=== PATIENT | female | born 1975 | race Caucasian/White ===

== ENCOUNTER → 2017-11-10 | Outpatient (CLI) | payer OTHER ==
[~2017-11-10] MED LIST: Amoxicillin PO; Motrin PO; Percocet 5/325,Endoc PO
== END | disposition home or self-care (01) ==
LOC: CDC 10:06
DX: Z01.810 Encounter for preprocedural cardiovascular examination (principal); C50.812 Malignant neoplasm of overlapping sites of left female breast
CPT/HCPCS: 93000

== ENCOUNTER 2017-11-24 06:36 | Day surgery (SDC) | payer OTHER ==
[~2017-11-24] VITALS: Ht 160 cm; Wt 56.2 kg
[~2017-11-24 06:36] MED LIST changes: +ADVIL COLD &1 TABLET PO; +CYANOCOBALAM1000 MCG PO; +GABAPENTIN300 MG PO; +NABUMETONE750 MG PO
[2017-11-24 07:11] VITALS: BP 102/69
[2017-11-24] MEDS ORDERED: HYDROCODON-ACE1 EAC7 PO (14:27)
[2017-11-24 15:43] VITALS: BP 95/60
[2017-11-24 17:00] VITALS: BP 101/61
== END 2017-11-24 17:30 | disposition home or self-care (01) ==
LOC: SDC 06:36 → NUC 06:36 → SDC 08:00 → 2SOUTH 14:38 → EDSTATUS 14:40 → SDC 14:41
DX: C50.812 Malignant neoplasm of overlapping sites of left female breast (principal); C77.3 Secondary and unspecified malignant neoplasm of axilla and upper limb lymph nodes; Z17.0 Estrogen receptor positive status [ER+]; M79.7 Fibromyalgia; F17.200 Nicotine dependence, unspecified, uncomplicated
CPT/HCPCS: 78195; 88305; 88307; A9541; J0690; J1100; J1170; J1885; J2250; J2405; S0020